=== PATIENT | female | born 1950 | race Caucasian/White ===

== ENCOUNTER 2016-11-18 17:37 | Emergency (ER) | payer MEDICARE, MEDICAID ==
[~2016-11-18] VITALS: Ht 182.9 cm; Wt 83.9 kg
[~2016-11-18 17:37] MED LIST: ANAS1TAB6 PO; ATEN-60 PO; Atorvastatin Calcium PO; CLOP75TA28 PO; Gabapentin PO; HAL1T PO; METF-316 PO; Metronidazole PO; OLA5T PO
[2016-11-18 18:16] LABS: Basophils # (auto) 0.1 uL; Basophils % (auto) 0.5 % (0.0-2.0); Eosinophils # (auto) 0.1 uL; Eosinophils % (auto) 1.1 % (0.0-7.0); Hematocrit 45.6 % (36.0-46.0); Hemoglobin 14.9 g/dL (12.2-16.2); Lymphocytes # (auto) 3.4 uL; Lymphocytes % (auto) 29.4 % (10.0-50.0); Mean Corpuscular Hemoglobin 29.9 pg (28.0-32.0); Mean Corpuscular Hgb Conc. 32.6 g/dL (32.0-36.0); Mean Corpuscular Volume 91.8 fL (80.0-100.0); Mean Platelet Volume 8.8 fL (7.4-10.4); Monocytes # (auto) 1.1 uL; Monocytes % (auto) 9.3 % (0.0-12.0); Neutrophils % (auto) 59.7 % (37.0-80.0); Platelet Count (auto) 319 10^3/uL (140-450); Red Cell Distribution Width 13.3 % (11.6-16.0); White Blood Cell 11.7 10^3/uL (4.4-10.8)
[2016-11-18 18:27] LABS: Anion Gap 10 (5-15); BUN/Creatinine Ratio 20.9; Blood Urea Nitrogen 18 mg/dL (7-18); Calcium 9.3 mg/dL (8.5-10.1); Carbon Dioxide 21 mmol/L (21-32); Chloride 109 mmol/L (98-107); GFR African American 85 mL/min; GFR Non-African American 70 mL/min; Glucose 161 mg/dL (74-106); Salicylate 2.4 mg/dL (2.8-20.0); Sodium 140 mmol/L (136-145)
[2016-11-18] MEDS ORDERED: SODIUM CHLORIDE 0.9% 500 ML IV ONE (18:33)
[2016-11-18 18:40] LABS: Acetaminophen < 2.0 ug/mL (10-30)
[2016-11-18] MEDS ORDERED: LORazepam 2MG/ML-1ML VIAL IV ONE (18:45)
[2016-11-18 18:50] LABS: Magnesium 2.1 mg/dL (1.6-2.6)
[2016-11-18 20:26] VITALS: BP 113/79
== END 2016-11-18 20:34 | disposition home or self-care (01) ==
LOC: ER 17:45
DX: F41.9 Anxiety disorder, unspecified (principal); I11.0 Hypertensive heart disease with heart failure; I50.9 Heart failure, unspecified; F32.9 Major depressive disorder, single episode, unspecified; F20.9 Schizophrenia, unspecified; F17.210 Nicotine dependence, cigarettes, uncomplicated; Z87.440 Personal history of urinary (tract) infections; Z85.9 Personal history of malignant neoplasm, unspecified; E11.9 Type 2 diabetes mellitus without complications; Z88.6 Allergy status to analgesic agent; Z88.2 Allergy status to sulfonamides; Z79.899 Other long term (current) drug therapy
CPT/HCPCS: 36415; 80048; 80320; 80329; 83735; 85025; 85049; 94761; 96360; 99284; G0434; J2060